=== PATIENT | male | born 1960 | race Caucasian/White ===

== ENCOUNTER 2020-08-03 13:10 | Day surgery (SDC) | payer BC, OTHER ==
[2020-08-03] MEDS ORDERED: Ondansetron 4 MG/2 ML SDV ONE (14:04)
[2020-08-03] MEDS ORDERED: Lidocaine 2% 5 ML SDV ONE (14:04)
[2020-08-03] MEDS ORDERED: Ketorolac 30 MG/ML SDV ONE (14:04)
[2020-08-03] MEDS ORDERED: HYDROmorphone 2 MG/ML Syringe ONE (14:05)
[2020-08-03] MEDS ORDERED: Propofol 200 MG/20 ML SDV ONE ×3 (14:05→16:17)
[2020-08-03] MEDS ORDERED: Midazolam 1 MG/ML 2 ML SDV ONE (14:05)
[2020-08-03] MEDS ORDERED: fentaNYL 100 MCG/2 ML SDV ONE (14:05)
[2020-08-03] MEDS ORDERED: Sodium Chloride 0.9% 10 ML SDV IV PRN (14:06)
[2020-08-03] MEDS ORDERED: Sodium Chloride 0.9% 2.5 ML Syringe FLUSH PRN (14:06)
[2020-08-03] MEDS ORDERED: Sodium Chloride 0.9% 10 ML Syringe FLUSH PRN (14:06)
[2020-08-03] MEDS ORDERED: Piperacillin/Tazobactam 3.375 GM in Sodium Chloride 0.9% 50 ML IV ONE ×2 (14:08→15:00)
[2020-08-03] MEDS ORDERED: Lactated Ringers 1,000 ML IV SCH (14:15)
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
[2020-08-03] MEDS ORDERED: Dexamethasone 4 MG/ML 5 ML MDV ONE (15:21)
[2020-08-03] MEDS ORDERED: ceFAZolin 1 GM Vial ONE (15:43)
[2020-08-03] MEDS ORDERED: Bupivacaine 0.5% 30 ML SDV ONE (15:43)
[2020-08-03] MEDS ORDERED: Ketamine 500 mg/10 ML MDV ONE (15:57)
--- NOTE | 2020-08-03 16:33 | PCM.OPNOTE ---
- General Post-Op/Procedure Note Date of Surgery/Procedure: 08/03/20 Operative Procedure(s): Umbilical wound exploration, incision and drainage umbilical abscess Findings: 1 x 0.5 x 2.5 cm abscess in the umbilical stalk Pre Op Diagnosis: Umbilical abscess Post-Op Diagnosis: same Anesthesia Technique: General LMA Primary Surgeon: Milagro Iyer Fluid Replacement, Intraop: 1,000 EBL in mLs: 5 Condition: Good
--- NOTE | 2020-08-03 16:59 | PCM.POSTAN ---
POST ANESTHESIA ASSESSMENT - MENTAL STATUS Mental Status: Alert, Oriented - VITAL SIGNS Vital Signs: Last Vital Signs Temp 37.2 C 08/03/20 16:29 Pulse 74 08/03/20 16:55 Resp 17 08/03/20 16:55 BP 114/75 08/03/20 16:55 Pulse Ox 95 08/03/20 16:55 - RESPIRATORY Respiratory Status: Respiratory Rate WNL, Airway Patent, O2 Saturation Stable - CARDIOVASCULAR CV Status: Pulse Rate WNL, Blood Pressure Stable - GASTROINTESTINAL GI Status: No Symptoms - PAIN Pain Score: 0 Free Text/Narrative:: Denies pain - POST OP HYDRATION Hydration Status: Adequate & Stable
--- NOTE | 2020-08-03 18:27 | PCM48HPAN ---
Post Anesthesia Note - EVALUATION WITHIN 48HRS OF ANESTHETIC Vital Signs in Normal Range: Yes Patient Participated in Evaluation: Yes Respiratory Function Stable: Yes Airway Patent: Yes Cardiovascular Function Stable: Yes Hydration Status Stable: Yes Pain Control Satisfactory: Yes (10 with standing. Reports adequate pain control.) Nausea and Vomiting Control Satisfactory: Yes (Denies nausea, taking PO well) Mental Status Recovered: Yes Vital Signs: Last Vital Signs Temp 36.8 C 08/03/20 17:05 Pulse 70 08/03/20 17:05 Resp 16 08/03/20 17:05 BP 124/81 08/03/20 17:05 Pulse Ox 95 08/03/20 17:05
[2020-08-03 18:49] VITALS: BP 119/78; PULSE 72
--- NOTE | 2020-08-03 19:28 | OR ---
SURGEON: MILAGRO IYER MD DATE OF PROCEDURE: 08/03/2020 PREOPERATIVE DIAGNOSIS: Umbilical abscess. POSTOPERATIVE DIAGNOSIS: Umbilical abscess. PROCEDURE PERFORMED: Umbilical wound exploration, incision and drainage of umbilical stalk abscess. PRIMARY SURGEON: Milagro Iyer MD ANESTHESIA: General LMA. FLUIDS: 1000 mL of crystalloid. ESTIMATED BLOOD LOSS: 5 mL. FINDINGS: 1 x 0.5 x 2.5 cm umbilical stalk abscess. COMPLICATIONS: None. INDICATIONS: The patient is a 60-year-old male who came to my office on Thursday complaining of pain, warmth, and swelling around his umbilicus. He had been to an outside hospital emergency room the night before. The CT scan at that time showed a small fluid collection around the umbilical stalk. I performed a bedside incision and drainage. At that time, I got into a pocket of fluid, but it did not appear frankly purulent. Given my concern that there may be an undrained abscess collection, I had the patient come back to see me in clinic today. Today in clinic, he had increasing redness, swelling, and firmness around the umbilical stalk. A repeat CT scan was performed, which showed an increasing fluid collection around the umbilical stalk. The decision was made to proceed to the operating room for wound exploration under anesthesia. The patient and I discussed the procedure; expected perioperative course; and risks including bleeding, infection, or damage to surrounding structures including the possibility of this being an umbilical hernia with connection to the intraabdominal cavity. The patient verbalized understanding and wishes to proceed. PROCEDURE IN DETAIL: The patient was brought into the OR and placed on the OR table in supine position. A time-out was completed verifying the patient's name, age, date of , allergies, and procedure to be performed. General LMA anesthesia was induced. The abdomen was prepped and draped in usual standard fashion. I explored the patient's previous supraumbilical incision. I could feel a firm area along the umbilical stalk. Using a 15 blade, I extended the supraumbilical incision laterally on the right and left side. Retractors were then put in place. Using the Metzenbaum scissors, I cut along the umbilical stalk and immediately encountered purulent material. This was sent for anaerobic and aerobic cultures as well as Gram stain. The wound tracked down to the fascia, but the patient did not appear to have an umbilical hernia. The purulent material was suctioned out and the wound irrigated. I took down the superior abscess wall sharply with the Metzenbaum scissors. This was sent to pathology for wound culture. I then palpated in the abscess cavity and again noted no connection to the intraabdominal space. The wound was irrigated copiously again and hemostasis was achieved with electrocautery. The wound was then packed with a 4 x 4 gauze moistened in a normal saline-Ancef solution. It was covered by dry 4 x 4 gauze and secured in place with tape. The patient tolerated the procedure well and was transferred to the PACU in stable condition. All counts were complete and correct at the end of the case. JERRY / ISREAL /[id number]
== END 2020-08-03 18:30 | disposition home or self-care (01) ==
LOC: MW.SDS 13:10
PROVIDERS: ATTEND Surgery
DX: L02.216 Cutaneous abscess of umbilicus (principal); L03.316 Cellulitis of umbilicus; Z01.812 Encounter for preprocedural laboratory examination; Z20.828 Contact with and (suspected) exposure to other viral communicable diseases; B96.89 Other specified bacterial agents as the cause of diseases classified elsewhere; E11.9 Type 2 diabetes mellitus without complications; K21.9 Gastro-esophageal reflux disease without esophagitis; Z79.899 Other long term (current) drug therapy; Z88.5 Allergy status to narcotic agent
CPT/HCPCS: 49060; 87070; 87075; 87205; 87635; J0690; J1100; J1170; J1885; J2001; J2250; J2405; J2704; J3010; J3490; J7120; 00400; U0002

== ENCOUNTER 2021-05-04 13:20 | Emergency (ER) | payer BC ==
[2021-05-04] MEDS ORDERED: Tetracaine HCl/PF 0.5% 4 ML Bottle EYEBOTH ONE (15:41)
[2021-05-04] MEDS ORDERED: Erythromycin Base 0.5% Ophth Oint 1 GM Tube EYELF ONE (16:28)
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
[2021-05-04 16:48] VITALS: BP 128/72; PULSE 64
== END 2021-05-04 16:49 | disposition home or self-care (01) ==
LOC: MW.ED 13:20
DX: S05.02XA Injury of conjunctiva and corneal abrasion without foreign body, left eye, initial encounter (principal); E11.9 Type 2 diabetes mellitus without complications; Z88.6 Allergy status to analgesic agent; W22.8XXA Striking against or struck by other objects, initial encounter
CPT/HCPCS: 99283; A9270; 99282

== ENCOUNTER 2022-03-11 07:39 | Day surgery (SDC) | payer BC ==
[2022-03-11] MEDS ORDERED: fentaNYL 100 MCG/2 ML SDV ONE (09:06)
[2022-03-11] MEDS ORDERED: Propofol 200 MG/20 ML SDV ONE ×2 (09:06→09:07)
[2022-03-11 11:00] VITALS: BP 104/62; PULSE 56
== END 2022-03-11 11:01 | disposition home or self-care (01) ==
LOC: MW.SDS 07:39
PROVIDERS: ATTEND Surgery
DX: K57.30 Diverticulosis of large intestine without perforation or abscess without bleeding (principal); K21.9 Gastro-esophageal reflux disease without esophagitis; E11.9 Type 2 diabetes mellitus without complications; G43.909 Migraine, unspecified, not intractable, without status migrainosus; Z79.899 Other long term (current) drug therapy; Z79.4 Long term (current) use of insulin; Z98.84 Bariatric surgery status; Z90.49 Acquired absence of other specified parts of digestive tract; Z98.890 Other specified postprocedural states
CPT/HCPCS: 45380; 82947; J2704; J3010; 00812